=== PATIENT | female | born 1990 | race Caucasian/White ===

== ENCOUNTER 2021-04-14 21:16 | Emergency (ER) | payer MEDICAID, OTHER ==
[~2021-04-14] VITALS: Ht 157.5 cm; Wt 61.2 kg
[2021-04-14 21:40] VITALS: BP 119/81
== END 2021-04-15 02:36 | disposition left against medical advice (07) ==
LOC: ER 21:19
DX: K08.89 Other specified disorders of teeth and supporting structures (principal); Z53.21 Procedure and treatment not carried out due to patient leaving prior to being seen by health care provider

== ENCOUNTER 2021-08-09 23:06 | Emergency (ER) | payer MEDICAID ==
[~2021-08-09] VITALS: Ht 157.5 cm; Wt 68.0 kg
[2021-08-09 23:07] VITALS: BP 114/67
[2021-08-10] MEDS ORDERED: CEPH-322 PO (04:17)
== END 2021-08-10 07:07 | disposition home or self-care (01) ==
LOC: ER 23:06
DX: N61.1 Abscess of the breast and nipple (principal); Z79.2 Long term (current) use of antibiotics

== ENCOUNTER 2022-01-11 17:48 | Observation (INO) | payer MEDICAID ==
[~2022-01-11] VITALS: Ht 167.6 cm; Wt 93.0 kg
[~2022-01-11 17:48] MED LIST: CEPH-322 PO
[2022-01-11] MEDS ORDERED: PREN-96 PO (18:31)
[2022-01-11 20:12] LABS: Alcohol, Urine < 3.0 mg/dL (0-10); Amphetamine Screen, Urine NEGATIVE (NEGATIVE); Barbiturate Scree,Urine NEGATIVE (NEGATIVE); Benzodiazephine Screen, Urine NEGATIVE (NEGATIVE); Cannabinoid Screen, Urine NEGATIVE (NEGATIVE); Cocaine Screen, Urine NEGATIVE (NEGATIVE); Opiate Scree,Urine NEGATIVE (NEGATIVE); Phencyclidine Screen, Urine NEGATIVE (NEGATIVE)
== END 2022-01-11 19:28 | disposition home or self-care (01) ==
LOC: LDRP 17:48
PROVIDERS: ADMIT Obstetrics & Gynecology; ATTEND Obstetrics & Gynecology
DX: O62.9 Abnormality of forces of labor, unspecified (principal); O26.893 Other specified pregnancy related conditions, third trimester; R10.13 Epigastric pain; Z3A.31 31 weeks gestation of pregnancy; Z79.899 Other long term (current) drug therapy
CPT/HCPCS: 59025; 80307; 81002; 94760; G0378